=== PATIENT | female | born 1960 | race Caucasian/White ===

== ENCOUNTER 2017-07-21 13:17 | Emergency (ER) | payer OTHER ==
[~2017-07-21] VITALS: Ht 157.5 cm; Wt 74.4 kg
[2017-07-21 13:21] VITALS: Ht 157.5 cm; Wt 74.4 kg
[2017-07-21 14:45] VITALS: BP 145/105
== END 2017-07-21 14:30 | disposition home or self-care (01) ==
LOC: ED 13:17
DX: G89.29 Other chronic pain (principal); R10.13 Epigastric pain; E78.00 Pure hypercholesterolemia, unspecified

== ENCOUNTER 2018-02-03 13:42 | Observation (INO) | payer OTHER ==
[~2018-02-03] VITALS: Ht 157.5 cm; Wt 71.2 kg
[2018-02-03 13:48] VITALS: Ht 157.5 cm; Wt 71.2 kg
[2018-02-03 14:38] LABS: AMPHETAMINE QUAL UR NONE DETECTED (See below)
[2018-02-03 14:44] LABS: BASOPHIL % 0.7 % (0-2); PLATELET COUNT 331 x10^3mcL (130-400); RED CELL DISTRIBUTION WIDTH 13.2 % (11.5-14.5)
[2018-02-03 15:10] LABS: CARBON DIOXIDE 28.1 mmol/L (21-32); CHLORIDE SERUM 106 mmol/L (98-107); CREATININE SERUM 0.6 mg/dL (0.6-1.0); GFR1 > 60 mL/min; GLUCOSE SERUM 90 mg/dL (74-106); POTASSIUM SERUM 3.6 mmol/L (3.5-5.1); SODIUM SERUM 141 mmol/L (136-145)
[2018-02-03 15:15] LABS: ALBUMIN 3.8 g/dL (3.4-5.0); ALKALINE PHOSPHATASE 119 U/L (46-116); ALT/SGPT 30 U/L (14-59); AST/SGOT 21 U/L (15-37); BILIRUBIN TOTAL 0.3 mg/dL (0.20-1.00)
[2018-02-03 18:18] VITALS: BP 130/71
[2018-02-03 21:12] VITALS: BP 133/50
[2018-02-04 05:39] VITALS: BP 113/65
[2018-02-04 07:19] LABS: BASOPHIL % 0.6 % (0-2); PLATELET COUNT 323 x10^3mcL (130-400); RED CELL DISTRIBUTION WIDTH 13.7 % (11.5-14.5)
[2018-02-04 07:53] LABS: ALKALINE PHOSPHATASE 108 U/L (46-116); ALT/SGPT 28 U/L (14-59); AST/SGOT 18 U/L (15-37); BILIRUBIN TOTAL 0.2 mg/dL (0.20-1.00); CARBON DIOXIDE 27.6 mmol/L (21-32); CHLORIDE SERUM 105 mmol/L (98-107); CHOLESTEROL 170 mg/dL (<200); CHOLESTEROL/HDL RATIO 4.5; CREATININE SERUM 0.6 mg/dL (0.6-1.0); GFR1 > 60 mL/min; GLUCOSE SERUM 88 mg/dL (74-106); HDL CHOLESTEROL 38 mg/dL (40-60); MAGNESIUM 2.1 mg/dL (1.8-2.4); POTASSIUM SERUM 4.4 mmol/L (3.5-5.1); SODIUM SERUM 141 mmol/L (136-145); TOTAL PROTEIN, SERUM 7.2 g/dL (6.4-8.2); TRIGLYCERIDES 158 mg/dL (<150)
[2018-02-04 07:54] LABS: ALBUMIN 3.3 g/dL (3.4-5.0)
[2018-02-04 08:55] VITALS: BP 106/57
[2018-02-04 10:22] VITALS: BP 106/57
== END 2018-02-04 13:18 | disposition home or self-care (01) | DRG 203 ==
LOC: ED 13:42 → DU 16:15
PROVIDERS: Emergency Medicine; Internal Medicine Pulmonary Disease
DX: M94.0 Chondrocostal junction syndrome [Tietze] (principal); E66.9 Obesity, unspecified; F17.210 Nicotine dependence, cigarettes, uncomplicated; E78.00 Pure hypercholesterolemia, unspecified; Z68.29 Body mass index [BMI] 29.0-29.9, adult
CPT/HCPCS: 83880; 99406; G0378